=== PATIENT | female | born 1950 | race Caucasian/White ===

== ENCOUNTER 2017-02-20 06:25 | Day surgery (SDC) | payer BC ==
[~2017-02-20 06:25] MED LIST: Buffered Lidocaine 0.9% SYRIN* 5 ML/SYR SYRINGE INTRADERM ONE; Dexamethasone IV* 4 MG/ML 1 ML (4 MG) IV SLOW PU ONE; Famotidine IV* 10 MG/ML 2 ML (20 mg) IV ONE; Scopolamine 1.5 mg* PATCH TRANSDERM ONE
[2017-02-20] MEDS ORDERED: Ondansetron INJ* 2 MG/ML VIAL ONE (06:35)
[2017-02-20] MEDS ORDERED: Scopolamine 1.5 mg* PATCH ONE (06:36)
[2017-02-20] MEDS ORDERED: ceFAZolin 2 GM PREMIX (*) 2 GM/50 ML BAG IVPB ONE (06:36)
[2017-02-20] MEDS ORDERED: Dexamethasone IV* 4 MG/ML 1 ML (4 MG) ONE (06:36)
[2017-02-20] MEDS ORDERED: Heparin VIAL(*) 5000 UNITS/ML VIAL (FIVE THOUSAND) ONE (06:36)
[2017-02-20] MEDS ORDERED: Famotidine IV* 10 MG/ML 2 ML (20 mg) ONE (06:37)
[2017-02-20] MEDS ORDERED: Lidocaine 2% PF * 5 ML VIAL IV ONE (07:27)
[2017-02-20] MEDS ORDERED: Midazolam* 1 MG/ML 2 ML VIAL (2 MG) IV ONE (07:27)
[2017-02-20] MEDS ORDERED: Propofol* 10 MG/ML 20 ML BTL IV PUSH ONE (07:27)
[2017-02-20] MEDS ORDERED: fentaNYL* 50 MCG/ML 2 ML VIAL (100 MCG VIAL) IV ONE (07:27)
[2017-02-20] MEDS ORDERED: Rocuronium* 10 MG/ML VIAL IV ONE (07:28)
[2017-02-20] MEDS ORDERED: ceFAZolin 1 GM VIAL(*) ONE ×2 (07:30→09:28)
[2017-02-20] MEDS ORDERED: EPINEPHrine AMP 1 MG/ML ONE (07:31)
[2017-02-20] MEDS ORDERED: Gentamicin ADULT (*) 40 MG/ML VIAL ONE ×2 (07:31→09:28)
[2017-02-20] MEDS ORDERED: Lidocaine 2% PF* 10 ML AMP ONE (07:31)
[2017-02-20] MEDS ORDERED: Povidone Iodine 5% OPTH* 30 ML BTL ONE (07:32)
[2017-02-20] MEDS ORDERED: EPHEDrine (Pressors)* 50 MG/ML VIAL IV SLOW PU ONE (08:07)
[2017-02-20] MEDS ORDERED: Glycopyrrolate IV* 0.2 MG/ML 1 ML VIAL IV SLOW PU ONE (08:30)
[2017-02-20] MEDS ORDERED: PROCHLORPERAZINE INJ 5 MG/ML 2 ML VIAL IV PRN (08:39)
[2017-02-20] MEDS ORDERED: oxyCODONE/Acetamin 5/325 MG* TAB PO PRN (08:39)
[2017-02-20] MEDS ORDERED: HYDROcodone/ACETAMIN 5-325 MG* 1 TAB PO PRN (08:39)
[2017-02-20] MEDS ORDERED: fentaNYL* 50 MCG/ML 2 ML VIAL (100 MCG VIAL) IV PRN (08:39)
[2017-02-20] MEDS ORDERED: fentaNYL* 50 MCG/ML 2 ML VIAL (100 MCG VIAL) IV SLOW PU ONE (08:49)
[2017-02-20] MEDS ORDERED: Bacitracin IV* 50,000 UNITS INJ ONE (09:29)
[2017-02-20] MEDS ORDERED: Phenylephrine IV* 40 MCG/ML 10 ML SYRINGE IV ONE (09:56)
[2017-02-20] MEDS ORDERED: Ondansetron INJ* 2 MG/ML VIAL IV ONE (10:23)
[2017-02-20 12:16] VITALS: BP 121/65
--- NOTE | 2017-02-21 01:38 | OP ---
CC: Dr. Cristine Adam * DATE OF OPERATION: 02/20/17 [facility] DATE OF : 54 SURGEON: Simone Díaz MD UX ARCHITECT: Naz Nelson NP ANESTHESIOLOGIST: Jose Fischer MD ANESTHESIA: General. PRE-OP DIAGNOSIS: Right silicone gel implant rupture, status post bilateral mastectomy and implant reconstruction. POST-OP DIAGNOSIS: Right silicone gel implant rupture, status post bilateral mastectomy and implant reconstruction. OPERATIVE PROCEDURE: Right breast open capsulectomy, left breast open capsulotomy, and bilateral implant exchanges with smooth round silicone gel implants, 650 cc. The right implant is a [place] [id number], serial #[id number], 650 cc. The left implant is a [place] [id number], serial #[id number], 650 cc. ESTIMATED BLOOD LOSS: 50 cc. SPECIMENS: 1. Right breast total capsulectomy with contained silicone gel implant and right mastectomy scar. 2. Left breast implant. DRAINS: None. COMPLICATIONS: None. INDICATIONS FOR OPERATION: The patient is a 66-year-old female who is status post right mastectomy and reconstruction with a tissue bale coverer performed by Dr. Nunez and Dr. Gonzalez on 12/09/91. In September 1992, she under-went removal of the tissue bale coverer and placement of a saline implant. She also had placement of left saline implant to achieve symmetry. She subsequently had right nipple areola reconstruction in 1993 as well. On 04/04/98, the right implant was noted to be deflated and she had it replaced. Records from that procedure were not available. In July 2000, she underwent left mastectomy and removal of previously placed left saline implant and reconstruction at that time with silicone implant. On 10/03/13, she underwent left capsulectomy and placement of a 630 cc textured [place] silicone gel implant. She has also undergone previous radiation therapy to the left breast. The patient presented at this time with complaints that the right breast implant was hard and was getting larger and seemed to be moving upper chest. Subsequent MRI and ultrasound confirmed a large effusion around the implant. Fine needle aspiration was performed on 01/22/17 under ultrasound guidance. Cytologic evaluation of that fluid demonstrated no evidence hematolymphoid or epithelial neoplasia. Benign macrophages demonstrating refractile, nonpolarizable intracellular material were noted. Preoperative examination of the breast demonstrated right breast is significantly larger, rounder, very firm with minimal mobility and marked exaggerated upper pole fullness. Left implant was noted to be soft and mobile with mild to moderate implant wrinkling noted. The working diagnosis is a ruptured right breast silicone gel implant with periprosthetic effusion and capsular contracture. DESCRIPTION OF PROCEDURE: Preoperative markings were made with the patient in a standing position in the preoperative holding area marking out the presternal midline and the existing inframammary folds bilaterally. The patient was taken to the operating room and placed on the operating room table in a supine position. Intermittent compression devices were applied to the lower extremities. General anesthesia was induced by Dr. Fischer. The bilateral breasts and anterior and lateral chest areas were prepped with ChloraPrep solution and draped sterilely. The right mastectomy scar was excised sharply with scalpel, scissor, and electrocautery dissection. Dissection was continued down through the subcutaneous tissues and the periprosthetic capsule identified. A total complete circumferential capsulectomy was then performed by a combination of careful scissor and electrocautery dissection removing the entire capsule and contained implant and effusion. Once the entire capsule and contained implant were removed, the effusion fluid was aspirated with a blunt tip needle, removing approximately 30 cc of dark brown fluid which was sent for cytology, as well as a request for IHC and flow cytometry for T- cell markers and CD30. The pocket was then irrigated with 5% Betadine and saline solution, also containing Ancef, bacitracin, and gentamicin. Pocket was then rinsed till clear with saline irrigation. Hemostasis was obtained with fine-point electrocautery. Pocket was then irrigated with further saline containing Ancef , bacitracin, and gentamicin, but no Betadine. Attention was then turned towards the left breast. The transverse oriented scar was incised and dissection continued down through the subcutaneous tissues and the anterior surface of the periprosthetic capsule was opened with electro- cautery. No unusual fluid was noted in the pocket. The textured silicone gel implant was removed intact and sent for routine pathologic study. The pocket was then irrigated with 5% Betadine and saline solution, also containing Ancef, Bacitracin, and gentamicin. Pocket was then rinsed clear with saline solution. Hemostasis was noted to be good. There was some transverse oriented linear scarring noted in the capsule with an overlying transverse oriented linear skin scarring across the lower pole of the left breast pocket. The scar in the capsule was released with electrocautery dissection to aid in improving the contour depression in this area with good result. Hemostasis was checked on both sides and noted to be good. Skin around the breast was reprepped with Betadine solution. Surgeon and surveyor instrument assistant's gloves were changed prior to handling each implant. The above noted implants were selected. The implants were rinsed externally in Ancef, bacitracin, gentamicin in saline solution and then the implants were replaced into their respective pockets. Implant positioning and breast symmetry were carefully checked in the supine and seated positions on the operating room table. Hemostasis was noted to be good. The wounds were then closed using interrupted sutures of 3-0 Vicryl in the capsule on the left side and then the fascial layer on the right side. Deep dermis was closed with buried interrupted sutures of 4-0 Vicryl. Skin was then closed with running sutures of 4-0 Monocryl. A VAC Prevena dressing was then applied and a good seal verified. The patient tolerated the procedure well. There were no complications. All counts were reported as correct at the end of the procedure. The patient was taken to the recovery area in stable postoperative condition. [id number]/[facility] #: [id number] [facility]ITAL[facility]
[2017-02-23] MEDS ORDERED: Scopolamine PATCH Remove* 1 NOTE MISC PATCH OFF ONE (06:00)
== END 2017-02-20 12:30 | disposition home or self-care (01) ==
LOC: OREAST 06:25
PROVIDERS: ATTEND Plastic Surgery
DX: T85.43XA Leakage of breast prosthesis and implant, initial encounter (principal); T85.44XA Capsular contracture of breast implant, initial encounter; Y81.2 Prosthetic and other implants, materials and accessory general- and plastic-surgery devices associated with adverse incidents; Z90.13 Acquired absence of bilateral breasts and nipples; Z85.3 Personal history of malignant neoplasm of breast; I10 Essential (primary) hypertension; N65.1 Disproportion of reconstructed breast
CPT/HCPCS: 88112; 88184; 88185; 88187; 88188; 88300; 88305; A9270-GY; C1789; J0171; J0690; J1100; J1580; J1644; J2001; J2250; J2405; J2704; J3010